=== PATIENT | female | born 1940 | race Caucasian/White ===

== ENCOUNTER → 2024-10-27 | Outpatient (CLI) | payer MEDICARE, BC, SELFPAY ==
[2024-10-27 13:57] LABS: Albumin, Serum 4.6 gm/dL (3.4-4.8); Anion Gap 3 (7-16); BUN/Creatinine Ratio 16 Ratio (12-20); Blood Urea Nitrogen 19 mg/dL (9-23); Calcium 9.4 mg/dL (8.3-10.6); Calcium (Corrected) 9.4 mg/dL (8.5-10.1); Carbon Dioxide 30.9 mMol/L (20.0-31.0); Chloride 99 mMol/L (98-107); Creatinine (Component) 1.2 mg/dL (0.6-1.3); Glucose 128 mg/dL (74-106); Osmolality,Calculated 270 (275-295); Phosphorous 2.9 mg/dL (2.4-5.1); Potassium 4.1 mMol/L (3.4-5.1); Sodium 133 mMol/L (136-145); eGFR 44 See Note
== END | disposition home or self-care (01) ==
LOC: COPL 13:05
PROVIDERS: PCP Family Medicine; Referring Provider Internal Medicine; Visit Provider Internal Medicine
DX: N18.31 Chronic kidney disease, stage 3a (principal); Z85.038 Personal history of other malignant neoplasm of large intestine; N28.1 Cyst of kidney, acquired
CPT/HCPCS: 36415; 80069

== ENCOUNTER → 2024-11-30 | Outpatient (CLI) | payer MEDICARE, BC, SELFPAY ==
--- NOTE | 2024-11-30 13:00 | XR_ITS ---
Examination: CT chest, without intravenous contrast. Sagittal and coronal 2-D reconstructions. Exam date and time: November 30, 2024 1349 hours COMPARISON: September 20, 2024 INDICATIONS: Diagnosis malignant neoplasm colon one year ago, 26 mm pulmonary mass right cardiophrenic angle on CT chest study September 20, 2024 CTDI:vol (mGy) 7.08 DLP: (mGycm) 241 Technique: Multiple 3.0 mm axial sections of the chest to been obtained. Bone and lung density settings are obtained. Sagittal and coronal 2-D reconstructions have been obtained. Low dose protocols were performed. One or more of the following dose reduction techniques were used; automated exposure control, adjustment of the mA and/or KV according to patient size, use of iterative reconstruction technique. Findings: AP dimension ascending thoracic aorta 37 mm Pulmonary artery segments are not No paratracheal tracheobronchial or bronchopulmonary adenopathy Stable 24 mm pulmonary mass at the right cardiophrenic angle Stable tiny nodular densities in the anterior segment right upper lobe No interval pneumonia or edema No pleural disease Stable right lobe liver cyst Stable 5 cm left renal cyst Stable bronchiectasis in the lingular segment IMPRESSION: Stable 24 mm pulmonary mass right cardiophrenic angle Stable likely post infectious nodular densities anterior segment right upper lobe Stable bronchiectasis lingular segment left upper lobe No interval pneumonia
== END | disposition home or self-care (01) ==
LOC: CCTX 12:52
PROVIDERS: Referring Provider Internal Medicine Hematology & Oncology; Visit Provider Internal Medicine Hematology & Oncology
DX: R91.8 Other nonspecific abnormal finding of lung field (principal); J47.9 Bronchiectasis, uncomplicated; C18.9 Malignant neoplasm of colon, unspecified
CPT/HCPCS: 71250

== ENCOUNTER → 2024-12-07 | Outpatient (CLI) | payer MEDICARE, BC, SELFPAY ==
[2024-12-07 14:21] LABS: Basophils # (Auto) 0.1 Thou/mm3 (0.0-0.2); Basophils % (Auto) 1 % (0-2.5); Eosinophils # (Auto) 0.1 Thou/mm3 (0.0-0.5); Eosinophils % (Auto) 1 % (0-10); Hematocrit 40.7 % (36.0-46.0); Hemoglobin 14.1 g/dL (12.0-16.0); Immature Granulocytes % (Auto) 0 % (0-0); Immature Granulocytes Auto 0.02 Thou/mm3 (0.00-0.00); Lymphocytes % (Auto) 27 % (10-50); Mean Corpuscular HGB Conc 34.6 g/dl (31.0-37.0); Mean Corpuscular Hemoglobin 30.7 pg (25.0-35.0); Mean Corpuscular Volume 89 fL (80-100); Monocytes # (Auto) 0.5 Thou/mm3 (0.0-0.8); Monocytes % (Auto) 7 % (0-12); Neutrophils # (Auto) 4.7 Thou/mm3 (1.8-7.7); Neutrophils % (Auto) 64 % (37-80); Nucleated Red Blood Cell % 0 /100 WBC (0); Platelet Count 243 Thou/mm3 (140-440); RDW Standard Deviation 38.7 fL (36.4-46.3); Red Blood Count 4.59 Miln/mm3 (4.00-5.20); White Blood Count 7.3 Thou/mm3 (3.6-11.0)
[2024-12-07 14:37] LABS: Alanine Aminotransferase 17 U/L (10-49); Albumin, Serum 4.4 gm/dL (3.4-4.8); Albumin/Globulin Ratio 1.8 (1.2-2.2); Alkaline Phosphatase 65 U/L (46-116); Anion Gap 6 (7-16); Aspartate Amino Transferase 21 U/L (0-34); BUN/Creatinine Ratio 15 Ratio (12-20); Bilirubin,Total 0.6 mg/dL (0.3-1.2); Blood Urea Nitrogen 15 mg/dL (9-23); Calcium 9.7 mg/dL (8.3-10.6); Calcium (Corrected) 9.7 mg/dL (8.5-10.1); Carbon Dioxide 30.3 mMol/L (20.0-31.0); Chloride 100 mMol/L (98-107); Globulin 2.5 gm/dL (2.3-3.5); Glucose 104 mg/dL (74-106); Osmolality,Calculated 272 (275-295); Potassium 4.4 mMol/L (3.4-5.1); Sodium 136 mMol/L (136-145); Total Protein 6.9 gm/dL (5.7-8.2); eGFR 55 See Note
[2024-12-07 15:06] LABS: Carcinoembryonic Antigen 1.7 ng/mL (0.0-5.0); Folate > 24.00 ng/mL (>5.38); Vitamin B12 376 pg/mL (211-911)
[2024-12-07 15:27] LABS: Ferritin 35 ng/mL (7.3-270.7); Total Iron Binding Capacity 378 mcg/dL (250-425)
[2024-12-07 15:38] LABS: Iron 90 mcg/dL (50-170); Percent Iron Saturation 23 % (20-55); Unsaturated Iron Binding 288 (225-295)
== END | disposition home or self-care (01) ==
LOC: SCTO 13:21
PROVIDERS: PCP Family Medicine; Referring Provider Internal Medicine Hematology & Oncology; Visit Provider Internal Medicine Hematology & Oncology
DX: C18.9 Malignant neoplasm of colon, unspecified (principal)
CPT/HCPCS: 36415; 80053; 82378; 82607; 82728; 82746; 83540; 83550; 85025

== ENCOUNTER 2024-12-13 09:50 | Outpatient (RCR) | payer MEDICARE, BC, SELFPAY | END 2024-12-17 23:59 | disposition home or self-care (01) | LOC: SCTC 09:50 | PROVIDERS: PCP Family Medicine; Referring Provider Family Medicine; Visit Provider Nurse Practitioner Family | DX: Z08 Encounter for follow-up examination after completed treatment for malignant neoplasm (principal); Z85.038 Personal history of other malignant neoplasm of large intestine; R91.8 Other nonspecific abnormal finding of lung field; Z90.49 Acquired absence of other specified parts of digestive tract | CPT/HCPCS: 99212; G0463 ==

== ENCOUNTER → 2024-12-28 | Outpatient (CLI) | payer MEDICARE, BC, SELFPAY ==
[2024-12-28 13:43] LABS: Glucose Estimated Average 100 mg/dL (80-131); Hemoglobin A1C 5.1 % Hgb (4.8-6.0)
[2024-12-28 13:49] LABS: Alanine Aminotransferase 18 U/L (10-49); Albumin, Serum 4.3 gm/dL (3.4-4.8); Albumin/Globulin Ratio 1.9 (1.2-2.2); Alkaline Phosphatase 65 U/L (46-116); Anion Gap 5 (7-16); Aspartate Amino Transferase 27 U/L (0-34); BUN/Creatinine Ratio 14 Ratio (12-20); Bilirubin,Total 0.6 mg/dL (0.3-1.2); Blood Urea Nitrogen 15 mg/dL (9-23); Carbon Dioxide 30.9 mMol/L (20.0-31.0); Cardiac Risk Estimate 2.4 RATIO (3.7-5.6); Chloride 102 mMol/L (98-107); Cholesterol 150 mg/dL (132-200); Creatinine (Component) 1.1 mg/dL (0.6-1.3); Globulin 2.3 gm/dL (2.3-3.5); Glucose 97 mg/dL (74-106); HDL Cholesterol 62 mg/dL (40-60); LDL Cholesterol,Calculated 54 mg/dL (0-130); Osmolality,Calculated 276 (275-295); Potassium 4.6 mMol/L (3.4-5.1); Sodium 138 mMol/L (136-145); Total Protein 6.6 gm/dL (5.7-8.2); Triglycerides 172 mg/dL (30-150); eGFR 49 See Note
== END | disposition home or self-care (01) ==
LOC: COPL 13:05
PROVIDERS: PCP Physician Assistant; Referring Provider Physician Assistant; Visit Provider Physician Assistant
DX: E78.5 Hyperlipidemia, unspecified (principal); R73.01 Impaired fasting glucose
CPT/HCPCS: 36415; 80053; 80061; 83036

== ENCOUNTER → 2025-01-26 | Outpatient (CLI) | payer MEDICARE, BC, SELFPAY ==
[2025-01-26 14:39] LABS: Basophils # (Auto) 0.1 Thou/mm3 (0.0-0.2); Basophils % (Auto) 1 % (0-2.5); Eosinophils # (Auto) 0.1 Thou/mm3 (0.0-0.5); Eosinophils % (Auto) 1 % (0-10); Hematocrit 43.3 % (36.0-46.0); Hemoglobin 14.5 g/dL (12.0-16.0); Immature Granulocytes % (Auto) 0 % (0-0); Immature Granulocytes Auto 0.02 Thou/mm3 (0.00-0.00); Lymphocytes # (Auto) 2.5 Thou/mm3 (1.0-4.8); Lymphocytes % (Auto) 27 % (10-50); Mean Corpuscular HGB Conc 33.5 g/dl (31.0-37.0); Mean Corpuscular Hemoglobin 30.9 pg (25.0-35.0); Mean Corpuscular Volume 92 fL (80-100); Monocytes # (Auto) 0.6 Thou/mm3 (0.0-0.8); Monocytes % (Auto) 7 % (0-12); Neutrophils % (Auto) 65 % (37-80); Nucleated Red Blood Cell % 0 /100 WBC (0); Platelet Count 244 Thou/mm3 (140-440); RDW Standard Deviation 41.8 fL (36.4-46.3); White Blood Count 9.2 Thou/mm3 (3.6-11.0)
[2025-01-26 14:54] LABS: Albumin, Serum 4.4 gm/dL (3.4-4.8); Anion Gap 7 (7-16); BUN/Creatinine Ratio 13 Ratio (12-20); Blood Urea Nitrogen 16 mg/dL (9-23); Calcium 9.5 mg/dL (8.3-10.6); Calcium (Corrected) 9.5 mg/dL (8.5-10.1); Carbon Dioxide 31.5 mMol/L (20.0-31.0); Chloride 101 mMol/L (98-107); Creatinine (Component) 1.2 mg/dL (0.6-1.3); Glucose 107 mg/dL (74-106); Osmolality,Calculated 278 (275-295); Phosphorous 3.3 mg/dL (2.4-5.1); Potassium 4.2 mMol/L (3.4-5.1); Sodium 139 mMol/L (136-145); eGFR 44 See Note
[2025-01-26 14:56] LABS: Vitamin B12 370 pg/mL (211-911); Vitamin D 25 Hydroxy Total 38.6 ng/mL (7.3-40.2)
[2025-01-26 15:14] LABS: Creatinine,Random Urine 15 mg/dL (30-125); Protein Total, Random Urine < 6 mg/dL (1-14)
== END | disposition home or self-care (01) ==
LOC: COPL 13:03
PROVIDERS: PCP Family Medicine; Referring Provider Internal Medicine; Visit Provider Internal Medicine
DX: N18.31 Chronic kidney disease, stage 3a (principal); N28.1 Cyst of kidney, acquired; Z85.038 Personal history of other malignant neoplasm of large intestine
CPT/HCPCS: 36415; 80069; 82306; 82570; 82607; 84156; 85025

== ENCOUNTER → 2025-02-10 | Outpatient (CLI) | payer MEDICARE, BC, SELFPAY ==
--- NOTE | 2025-02-10 13:40 | XR_ITS ---
Examination: Bone densitometry Date and time of exam:February 10, 2025 1418 hours INDICATIONS: Menopause age 49 vitamin D and calcium 20 years, personal history osteopenia Technique: Lumbar spine and hip total bone mineralization values of an calculated. Peak reference and age match control results have been displayed. Findings: Lumbar spine total bone mineralization is0.978 gm/cm2. This is 0.6 standard deviations below peak reference. This is 2.2 standard deviations above age-matched controls. Hip total bone mineralization is 0.893 gm/cm2 This is 0.4 standard deviations below peak reference. This is 1.9 standard deviations above age-matched controls Impression: There is normal mineralization based on lumbar spine measurements. There is osteopenia based on hip measurements Lumbar mineralization is unchanged compared with January 09, 2023 Hip mineralization is decreased 2.6% compared with January 09, 2023
== END | disposition home or self-care (01) ==
PROVIDERS: Referring Provider Physician Assistant; Visit Provider Physician Assistant
DX: M85.89 Other specified disorders of bone density and structure, multiple sites (principal)
CPT/HCPCS: 77080

== ENCOUNTER → 2025-05-05 | Outpatient (CLI) | payer MEDICARE, BC, SELFPAY ==
[2025-05-05 14:30] LABS: Albumin, Serum 4.3 gm/dL (3.4-4.8); Anion Gap 4 (7-16); BUN/Creatinine Ratio 13 Ratio (12-20); Blood Urea Nitrogen 16 mg/dL (9-23); Calcium 9.5 mg/dL (8.3-10.6); Calcium (Corrected) 9.5 mg/dL (8.5-10.1); Carbon Dioxide 31.6 mMol/L (20.0-31.0); Chloride 102 mMol/L (98-107); Creatinine (Component) 1.2 mg/dL (0.6-1.3); Glucose 121 mg/dL (74-106); Osmolality,Calculated 277 (275-295); Phosphorous 2.9 mg/dL (2.4-5.1); Potassium 4.6 mMol/L (3.4-5.1); Sodium 138 mMol/L (136-145); eGFR 44 See Note
== END | disposition home or self-care (01) ==
LOC: COPL 13:20
PROVIDERS: PCP Physician Assistant; Referring Provider Internal Medicine; Visit Provider Internal Medicine
DX: N18.31 Chronic kidney disease, stage 3a (principal); N28.1 Cyst of kidney, acquired; Z85.038 Personal history of other malignant neoplasm of large intestine
CPT/HCPCS: 36415; 80069

== ENCOUNTER → 2025-06-03 | Outpatient (CLI) | payer MEDICARE, BC, SELFPAY ==
[2025-06-03 14:41] LABS: Basophils # (Auto) 0.0 Thou/mm3 (0.0-0.2); Basophils % (Auto) 1 % (0-2.5); Eosinophils # (Auto) 0.1 Thou/mm3 (0.0-0.5); Eosinophils % (Auto) 1 % (0-10); Hematocrit 40.4 % (36.0-46.0); Hemoglobin 13.9 g/dL (12.0-16.0); Immature Granulocytes Auto 0.02 Thou/mm3 (0.00-0.00); Lymphocytes # (Auto) 2.2 Thou/mm3 (1.0-4.8); Lymphocytes % (Auto) 29 % (10-50); Mean Corpuscular HGB Conc 34.4 g/dl (31.0-37.0); Mean Corpuscular Hemoglobin 30.6 pg (25.0-35.0); Mean Corpuscular Volume 89 fL (80-100); Monocytes # (Auto) 0.5 Thou/mm3 (0.0-0.8); Monocytes % (Auto) 7 % (0-12); Neutrophils # (Auto) 4.9 Thou/mm3 (1.8-7.7); Neutrophils % (Auto) 63 % (37-80); Nucleated Red Blood Cell # 0.00 Thou/mm3 (0.00-0.00); Nucleated Red Blood Cell % 0 /100 WBC (0); Platelet Count 217 Thou/mm3 (140-440); RDW Standard Deviation 39.9 fL (36.4-46.3); Red Blood Count 4.54 Miln/mm3 (4.00-5.20); White Blood Count 7.7 Thou/mm3 (3.6-11.0)
[2025-06-03 15:02] LABS: Alanine Aminotransferase 16 U/L (10-49); Albumin, Serum 4.2 gm/dL (3.4-4.8); Albumin/Globulin Ratio 1.6 (1.2-2.2); Alkaline Phosphatase 62 U/L (46-116); Anion Gap 11 (7-16); Aspartate Amino Transferase 25 U/L (0-34); BUN/Creatinine Ratio 15 Ratio (12-20); Bilirubin,Total 0.6 mg/dL (0.3-1.2); Blood Urea Nitrogen 16 mg/dL (9-23); Calcium 9.1 mg/dL (8.3-10.6); Calcium (Corrected) 9.1 mg/dL (8.5-10.1); Carbon Dioxide 27.2 mMol/L (20.0-31.0); Chloride 101 mMol/L (98-107); Creatinine (Component) 1.1 mg/dL (0.6-1.3); Globulin 2.6 gm/dL (2.3-3.5); Glucose 164 mg/dL (74-106); Osmolality,Calculated 282 (275-295); Potassium 3.9 mMol/L (3.4-5.1); Sodium 139 mMol/L (136-145); Total Protein 6.8 gm/dL (5.7-8.2); eGFR 49 See Note
[2025-06-03 15:06] LABS: Carcinoembryonic Antigen 1.4 ng/mL (0.0-5.0)
== END | disposition home or self-care (01) ==
LOC: COPL 13:47
PROVIDERS: PCP Family Medicine; Referring Provider Nurse Practitioner Family; Visit Provider Physician Assistant
DX: C18.9 Malignant neoplasm of colon, unspecified (principal)
CPT/HCPCS: 36415; 80053; 82378; 85025

== ENCOUNTER 2025-06-07 10:45 | Outpatient (RCR) | payer MEDICARE, BC, SELFPAY ==
--- NOTE | 2025-06-13 04:27 | CTCFLWUP_ITS ---
Patient: LYDIA GRUBBS I. : 1940 Page 6 of 9 FOLLOW UP NOTE DATE OF SERVICE: 06/07/2025 NAME: LYDIA GRUBBS I. ACCOUNT: [id number] : 1940 AGE: 85 INTERVAL HISTORY: Lydia, an 85yo female with stage 2 colon cancer (2023), presented for oncology follow-up. Her history includes stage 3 CKD, hypercholesterolemia, and bronchiectasis. She underwent partial colectomy without chemotherapy and reports no new cancer-related symptoms. Recent labs showed improved kidney function (50, up from 46) and normal hemoglobin after discontinuing ferrous sulfate in September 2024. A stable 2cm pulmonary nodule was noted on CT. Management includes initiating circulating tumor DNA testing every 3 months, continuing CT surveillance, and follow-up in 6 months. ONCOLOGY HISTORY:?[facility] Hx? 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 S/p right hemicolectomy on 02/24/2024. Garcia syndrome panel negative (03/22/2024) Small pulmonary nodules. History of bronchiectasis diagnosed in 2007. Currently being followed by Dr. Mcneal, professor [facility] [employer] [place]. 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 S/p right hemicolectomy on 02/24/2024. Garcia syndrome panel negative (03/22/2024) [facility] inherited trait cancer test did not show any genetic abnormalities. ?[facility] Dx? DATE OF DIAGNOSIS: 02/23/2024 STAGE/TNM: Stage IIA (pT3, PN 0, centimeters 0) TREATMENT HISTORY: Care?Plan Start?Date Cycle Day Intent HISTORY OF PRESENT ILLNESS: Lydia Grubbs is a 85-year-old ENG speaking female with history of bronchiectasis was recently found to have microcytic anemia which prompted her to have colonoscopy. 10/27/2023: Hemoglobin 9.2, MCV 74, WBC 8.1, ANC 5.6, platelets 241,000. 02/23/2024: Colonoscopy 02/26/2024: CT scan of the chest with IV contrast? OTHER MEDICAL HISTORY/CONDITIONS: COPD HTN Hyperlipidemia Hx TIA Chronic kidney disease - Dr. Bobby Bronchietasis - Dr. 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 [employer] HISTORY: Menarche?-?Age:?14 Menopause:?1989 :?1 Live?Births:?1 Age?1st?:?18 MEDICATIONS: 1. aspirin - 81 mg 1 tab Daily 2. azithromycin - 500 mg 1 tab As directed 3. busPIRone - 7.5 mg 0.5 tab Twice a Day 4. Calcium 500 - 500 mg 1 tab Twice a Day 5. Fish OiL - 1,200 (144-216) mg 1 Capsule Daily 6. lovastatin - 20 mg 1 tab Daily 7. Vitamin C - 500 mg 1 tab Twice a Day 8. Women's Daily Multivitamin - 18-0.4 mg 1 tab Daily?Palabra Meds? Medications Last Reconciled by Rochelle Luna MA on 06/07/2025 ALLERGIES: No Known Drug Allergies REVIEW OF SYSTEMS: A complete 14-point review of systems was performed and is negative except as noted in interval history. PHYSICAL EXAMINATION:?[facility] PE? VITAL SIGNS: Temperature?98, B/P?151/93, Oxygen?Saturation?94% PAIN: 0 - No pain ECOG Performance Status: 0 - Asymptomatic and fully active GENERAL APPEARANCE: Appears well, in no apparent distress, appropriately interactive. HEENT: Normocephalic, no temporal wasting, normal conjunctiva, lips without lesions, neck normal range of motion. CARDIOVASCULAR: Normal heart sounds PULMONARY: Normal respiratory effort, no respiratory distress or use of accessory muscles, speaking in full sentences, no tachypnea. EXTREMITIES: No cyanosis. SKIN: Normal skin appearance. NEUROLOGIC: Alert and oriented x4. PSHYCHIATRIC: Appropriate affect, mood normal, behavior normal, intact thought and speech. LABORATORY DATA: I have personally reviewed and interpreted each of the patient?s relevant lab tests, abnormal findings are below: Date 05/05/25 06/03/25 ??WHITE?BLOOD?COUNT?(Thou/mm3) ? 7.7 ??RED?BLOOD?COUNT?(Miln/mm3) ? 4.54 ??HEMOGLOBIN?(gm/dl) ? 13.9 ??HEMATOCRIT?(%) ? 40.4 ??PLATELET?COUNT?(Thou/mm3) ? 217 ??NEUTROPHILS?%,?AUTO?(%) ? 63 ??LYMPH?%,?AUTO?(%) ? 29 ??NEUTROPHILS,?AUTO?(Thou/mm3) ? 4.9 ??GLUCOSE,RANDOM?(mg/dL) 121?H 164?H ??BLOOD?UREA?NITROGEN?(mg/dL) 16 16 ??CREATININE?(mg/dL) 1.20 1.10 ??SODIUM?(mmol/L) 138 139 ??POTASSIUM?(mmol/L) 4.6 3.9 ??CHLORIDE?(mmol/L) 102 101 ??CrCl?(CandG)?(ml/min) 32.40 34.70 ??AST/SGOT?(Unit/L) ? 25 ??ALT/SGPT?(Unit/L) ? 16 ??ALKALINE?PHOSPHATASE?(Unit/L) ? 62 ??BILIRUBIN,?TOTAL?(mg/dL) ? 0.6 ??PROTEIN?TOTAL?(gm/dl) ? 6.8 ??ALBUMIN,?SERUM?(gm/dl) 4.3 4.2 ??GLOBULIN?(gm/dl) ? 2.6 ??ALBUMIN/GLOBULIN?RATIO ? 1.6 ??CALCIUM,?SERUM?(mg/dL) 9.5 9.1 ??CALCIUM?SERUM?(CORRECTED)?(mg/dL) 9.5 9.1 ??CEA?(O*)?(ng/ml) ? 1.4 ASSESSMENT/PLAN:?Deborah Han Assessment/Plan? 1. 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 S/p right hemicolectomy on 02/24/2024. Garcia syndrome panel negative (03/22/2024) [facility] inherited trait cancer test did not show any genetic abnormalities. Small pulmonary nodules. History of bronchiectasis diagnosed in 2007. Currently being followed by Dr. Mcneal, professor [employer] [place]. Taking antibiotics that are prescribed by Dr. Mcneal. Assessment: Patient underwent surgery in 2023 for stage 2 colon cancer, with 6 inches of colon removed. The surgeon, Dr. Grant, reported complete resection of the cancer. Post-operative management consisted of observation only, without adjuvant chemotherapy. A recent CT scan showed a stable 2-centimeter nodule, which is most likely scar tissue, possibly related to bronchiectasis or environmental factors associated with living in the [place]. The patient has been doing well since the surgery with no reported symptoms suggestive of recurrence. Plan: - Order circulating tumor DNA blood test for cancer surveillance - Initial test to be performed in clinic - Subsequent tests to be conducted at patient's home every 3 months - Continue surveillance with CT scans as previously scheduled - Follow-up appointment in 6 months - Continue current diet (primarily vegetarian with occasional fish) Chronic Kidney Disease, Stage 3 Assessment: Patient has a history of chronic kidney disease, stage 3. Recent laboratory results show improvement in kidney function with creatinine clearance of 50 mL/min, up from a previous value of 46 mL/min. 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 Plan: - Continue current renal diet (low salt, primarily vegetarian with occasional fish) - Monitor renal function with comprehensive metabolic panel at next visit Anemia, Resolved Assessment: Patient has a history of anemia, previously treated with ferrous sulfate. Treatment was discontinued in September [address] Michele. Recent laboratory results show normal hemoglobin levels, indicating resolution of anemia. Plan: - Discontinue ferrous sulfate prescription at pharmacy - Monitor hemoglobin levels with complete blood count at next visit - Check vitamin and iron levels at next visit to ensure no deficiencies Elevated Blood Glucose Assessment: Recent random blood glucose was noted to be slightly elevated. No prior history of diabetes mellitus is mentioned. Plan: - Monitor blood glucose levels at future visits - Consider fasting blood glucose or HbA1c at next visit for further evaluation CBC CMP CEA iron panel ferritin B12 folate ORDERS: Order # Description [id number] Comprehensive Metabolic Panel - 12 + CBC with Auto Diff + CEA [id number] Iron Panel + Ferritin + Folic Acid; Serum + Lactate Dehydrogenase (LDH) + Assay Of Haptoglobin Quant RETURN TO CLINIC: I reviewed the diagnosis, prognosis, and recommended treatment/procedure options with the patient (and/or their legal data entry representative), including the potential benefits, risks, side effects and alternative therapies. We also discussed the option of no treatment and the possibility of clinical trial participation, if applicable. All questions were addressed, and they demonstrated understanding. They provided informed consent to proceed with the proposed plan of care. BILLING AND COMPLIANCE: I reviewed external records from providers outside my specialty as summarized above. I spent a total of 50 minutes on this patient?s care on the day of their visit excluding time spent related to any billed procedures. This time includes time spent with the patient as well as time spent documenting in the medical record, reviewing patients records and tests, obtaining history, placing orders, communicating with other healthcare professionals, counseling the patient, family or caregiver, and/or care coordination for the diagnoses above. Electronically Signed by: Francis Han MD T: 4:25 AM CC: PCP: Thien Ambriz Referring: Thien Ambriz This document was completed utilizing speech recognition software. Grammatical errors, random word insertions, pronoun errors, and incomplete sentences are an occasional consequence of this system due to software limitations, ambient noise, and hardware issues. Any formal questions or concerns about the content, text or information contained within the body of this dictation should be directly addressed to the provider for clarification.
== END 2025-06-16 23:59 | disposition home or self-care (01) ==
LOC: SCTC 10:45
PROVIDERS: PCP Family Medicine; Referring Provider Family Medicine; Visit Provider Internal Medicine Hematology & Oncology
DX: C18.2 Malignant neoplasm of ascending colon (principal); Z90.49 Acquired absence of other specified parts of digestive tract; R91.8 Other nonspecific abnormal finding of lung field; N18.30 Chronic kidney disease, stage 3 unspecified; R73.9 Hyperglycemia, unspecified
CPT/HCPCS: 99212; G0463

== ENCOUNTER → 2025-06-27 | Outpatient (CLI) | payer MEDICARE, BC, SELFPAY ==
[2025-06-27 08:37] LABS: Basophils # (Auto) 0.1 Thou/mm3 (0.0-0.2); Basophils % (Auto) 1 % (0-2.5); Eosinophils # (Auto) 0.1 Thou/mm3 (0.0-0.5); Eosinophils % (Auto) 2 % (0-10); Hematocrit 42.7 % (36.0-46.0); Hemoglobin 14.5 g/dL (12.0-16.0); Immature Granulocytes Auto 0.02 Thou/mm3 (0.00-0.00); Lymphocytes # (Auto) 2.2 Thou/mm3 (1.0-4.8); Lymphocytes % (Auto) 25 % (10-50); Mean Corpuscular HGB Conc 34.0 g/dl (31.0-37.0); Mean Corpuscular Hemoglobin 31.0 pg (25.0-35.0); Mean Corpuscular Volume 91 fL (80-100); Monocytes # (Auto) 0.8 Thou/mm3 (0.0-0.8); Monocytes % (Auto) 10 % (0-12); Neutrophils # (Auto) 5.5 Thou/mm3 (1.8-7.7); Neutrophils % (Auto) 63 % (37-80); Nucleated Red Blood Cell # 0.00 Thou/mm3 (0.00-0.00); Nucleated Red Blood Cell % 0 /100 WBC (0); Platelet Count 302 Thou/mm3 (140-440); RDW Standard Deviation 39.5 fL (36.4-46.3); Red Blood Count 4.68 Miln/mm3 (4.00-5.20); White Blood Count 8.7 Thou/mm3 (3.6-11.0)
[2025-06-27 08:46] LABS: Alanine Aminotransferase 11 U/L (10-49); Albumin, Serum 4.5 gm/dL (3.4-4.8); Albumin/Globulin Ratio 1.7 (1.2-2.2); Alkaline Phosphatase 79 U/L (46-116); Anion Gap 9 (7-16); Aspartate Amino Transferase 18 U/L (0-34); BUN/Creatinine Ratio 13 Ratio (12-20); Bilirubin,Total 0.7 mg/dL (0.3-1.2); Blood Urea Nitrogen 14 mg/dL (9-23); Calcium 9.4 mg/dL (8.3-10.6); Calcium (Corrected) 9.4 mg/dL (8.5-10.1); Carbon Dioxide 29.4 mMol/L (20.0-31.0); Cardiac Risk Estimate 2.6 RATIO (3.7-5.6); Chloride 103 mMol/L (98-107); Cholesterol 141 mg/dL (132-200); Creatinine (Component) 1.1 mg/dL (0.6-1.3); Globulin 2.6 gm/dL (2.3-3.5); Glucose 112 mg/dL (74-106); HDL Cholesterol 54 mg/dL (40-60); LDL Cholesterol,Calculated 66 mg/dL (0-130); Osmolality,Calculated 282 (275-295); Potassium 4.5 mMol/L (3.4-5.1); Sodium 141 mMol/L (136-145); Thyroid Stimulating Hormone 1.82 uIU/mL (0.55-4.78); Total Protein 7.1 gm/dL (5.7-8.2); Triglycerides 105 mg/dL (30-150); eGFR 49 See Note
[2025-06-27 08:55] LABS: Vitamin B12 457 pg/mL (211-911); Vitamin D 25 Hydroxy Total 46.0 ng/mL (7.3-40.2)
[2025-06-27 09:01] LABS: Glucose Estimated Average 111 mg/dL (80-131); Hemoglobin A1C 5.5 % Hgb (4.8-6.0)
[2025-06-27 09:24] LABS: Collection Type, Urine Clean Catch
[2025-06-27 10:17] LABS: Amorphous Crystals,Urine Present (Absent); Bilirubin,Urine Negative (Negative); Blood,Urine Negative (Negative); Clarity,Urine Turbid (Clear/Hazy); Color,Urine Yellow (Lt Yel-Yel); Culture Indicated,Urine Not Indicated; Glucose, Urine Negative (Negative); Ketones,Urine Negative (Negative); Leukocyte Esterase,Urine Negative (Negative); Nitrite,Urine Negative (Negative); PH,Urine 8.0 (5.0-7.0); Protein,Urine Trace (Neg - Trace); RBC,Urine 9 /hpf (0-3); Specific Gravity,Urine 1.019 (1.001-1.035); Squamous Epithelial Cell,Urine < 1 /hpf (0-5); Urobilinogen,Urine Negative mg/dL (0.0-1.0); WBC,Urine 2 /hpf (0-5)
== END | disposition home or self-care (01) ==
LOC: COPL 07:49
PROVIDERS: PCP Family Medicine; Referring Provider Physician Assistant; Visit Provider Physician Assistant
DX: E55.9 Vitamin D deficiency, unspecified (principal); R73.01 Impaired fasting glucose; N18.30 Chronic kidney disease, stage 3 unspecified; E78.5 Hyperlipidemia, unspecified
CPT/HCPCS: 36415; 80053; 80061; 81001; 82306; 82607; 83036; 84443; 85025

== ENCOUNTER → 2025-06-28 | Outpatient (CLI) | payer MEDICARE, BC, SELFPAY ==
[2025-06-30 06:29] LABS: Fecal Globin Result NOT DETECTED (NOT DETECTED)
== END | disposition home or self-care (01) ==
LOC: SLDO 10:28
PROVIDERS: Referring Provider Physician Assistant; Visit Provider Physician Assistant
DX: R73.01 Impaired fasting glucose (principal); E55.9 Vitamin D deficiency, unspecified; E78.5 Hyperlipidemia, unspecified; N18.30 Chronic kidney disease, stage 3 unspecified
CPT/HCPCS: 82274; G0328

== ENCOUNTER → 2025-08-04 | Outpatient (CLI) | payer MEDICARE, BC, SELFPAY ==
[2025-08-04 14:23] LABS: Basophils # (Auto) 0.1 Thou/mm3 (0.0-0.2); Basophils % (Auto) 1 % (0-2.5); Eosinophils # (Auto) 0.1 Thou/mm3 (0.0-0.5); Eosinophils % (Auto) 1 % (0-10); Hematocrit 41.1 % (36.0-46.0); Hemoglobin 13.7 g/dL (12.0-16.0); Immature Granulocytes Auto 0.02 Thou/mm3 (0.00-0.00); Lymphocytes # (Auto) 2.3 Thou/mm3 (1.0-4.8); Lymphocytes % (Auto) 29 % (10-50); Mean Corpuscular HGB Conc 33.3 g/dl (31.0-37.0); Mean Corpuscular Hemoglobin 30.3 pg (25.0-35.0); Mean Corpuscular Volume 91 fL (80-100); Monocytes # (Auto) 0.6 Thou/mm3 (0.0-0.8); Monocytes % (Auto) 8 % (0-12); Neutrophils # (Auto) 4.8 Thou/mm3 (1.8-7.7); Neutrophils % (Auto) 61 % (37-80); Nucleated Red Blood Cell # 0.00 Thou/mm3 (0.00-0.00); Nucleated Red Blood Cell % 0 /100 WBC (0); Platelet Count 233 Thou/mm3 (140-440); RDW Standard Deviation 40.5 fL (36.4-46.3); Red Blood Count 4.52 Miln/mm3 (4.00-5.20); White Blood Count 7.9 Thou/mm3 (3.6-11.0)
[2025-08-04 14:47] LABS: Albumin, Serum 4.2 gm/dL (3.4-4.8); Anion Gap 7 (7-16); BUN/Creatinine Ratio 12 Ratio (12-20); Blood Urea Nitrogen 12 mg/dL (9-23); Calcium 9.9 mg/dL (8.3-10.6); Calcium (Corrected) 9.9 mg/dL (8.5-10.1); Carbon Dioxide 30.9 mMol/L (20.0-31.0); Chloride 102 mMol/L (98-107); Creatinine (Component) 1.0 mg/dL (0.6-1.3); Glucose 75 mg/dL (74-106); Osmolality,Calculated 278 (275-295); Phosphorous 3.4 mg/dL (2.4-5.1); Potassium 4.6 mMol/L (3.4-5.1); Sodium 140 mMol/L (136-145); eGFR 55 See Note
[2025-08-04 14:52] LABS: Vitamin D 25 Hydroxy Total 58.8 ng/mL (7.3-40.2)
== END | disposition home or self-care (01) ==
LOC: COPL 13:51
PROVIDERS: PCP Family Medicine; Referring Provider Internal Medicine; Visit Provider Internal Medicine
DX: N18.31 Chronic kidney disease, stage 3a (principal); Z85.038 Personal history of other malignant neoplasm of large intestine; N28.1 Cyst of kidney, acquired
CPT/HCPCS: 36415; 80069; 82306; 85025

== ENCOUNTER → 2025-08-30 | Outpatient (CLI) | payer MEDICARE, BC, SELFPAY ==
[2025-08-30 13:24] LABS: Collection Type, Urine Clean Catch; Squamous Epithelial Cell,Urine 0 /hpf (0-5)
[2025-08-30 13:56] LABS: Basophils # (Auto) 0.1 Thou/mm3 (0.0-0.2); Basophils % (Auto) 1 % (0-2.5); Eosinophils # (Auto) 0.1 Thou/mm3 (0.0-0.5); Eosinophils % (Auto) 1 % (0-10); Hematocrit 44.5 % (36.0-46.0); Hemoglobin 14.9 g/dL (12.0-16.0); Immature Granulocytes Auto 0.04 Thou/mm3 (0.00-0.00); Lymphocytes # (Auto) 2.1 Thou/mm3 (1.0-4.8); Lymphocytes % (Auto) 23 % (10-50); Mean Corpuscular HGB Conc 33.5 g/dl (31.0-37.0); Mean Corpuscular Hemoglobin 30.8 pg (25.0-35.0); Mean Corpuscular Volume 92 fL (80-100); Monocytes # (Auto) 0.4 Thou/mm3 (0.0-0.8); Monocytes % (Auto) 5 % (0-12); Neutrophils # (Auto) 6.5 Thou/mm3 (1.8-7.7); Neutrophils % (Auto) 71 % (37-80); Nucleated Red Blood Cell # 0.00 Thou/mm3 (0.00-0.00); Nucleated Red Blood Cell % 0 /100 WBC (0); Platelet Count 243 Thou/mm3 (140-440); RDW Standard Deviation 42.2 fL (36.4-46.3); Red Blood Count 4.84 Miln/mm3 (4.00-5.20); White Blood Count 9.2 Thou/mm3 (3.6-11.0)
[2025-08-30 13:59] LABS: Bilirubin,Urine Negative (Negative); Blood,Urine 1+ (Negative); Clarity,Urine Clear (Clear/Hazy); Color,Urine Lt-Yellow (Lt Yel-Yel); Culture Indicated,Urine Not Indicated; Glucose, Urine Negative (Negative); Ketones,Urine Negative (Negative); Leukocyte Esterase,Urine Negative (Negative); Nitrite,Urine Negative (Negative); PH,Urine 6.0 (5.0-7.0); Protein,Urine Negative (Neg - Trace); RBC,Urine < 1 /hpf (0-3); Specific Gravity,Urine 1.009 (1.001-1.035); Urobilinogen,Urine Negative mg/dL (0.0-1.0); WBC,Urine < 1 /hpf (0-5)
[2025-08-30 14:27] LABS: Alanine Aminotransferase 19 U/L (10-49); Albumin, Serum 4.5 gm/dL (3.4-4.8); Albumin/Globulin Ratio 1.8 (1.2-2.2); Alkaline Phosphatase 66 U/L (46-116); Amylase 174 U/L (30-118); Anion Gap 10 (7-16); Aspartate Amino Transferase 27 U/L (0-34); BUN/Creatinine Ratio 13 Ratio (12-20); Bilirubin,Total 0.5 mg/dL (0.3-1.2); Blood Urea Nitrogen 14 mg/dL (9-23); Calcium 9.9 mg/dL (8.3-10.6); Calcium (Corrected) 9.9 mg/dL (8.5-10.1); Carbon Dioxide 29.7 mMol/L (20.0-31.0); Chloride 102 mMol/L (98-107); Creatinine (Component) 1.1 mg/dL (0.6-1.3); Globulin 2.5 gm/dL (2.3-3.5); Glucose 137 mg/dL (74-106); Lipase 80 U/L (12-53); Osmolality,Calculated 285 (275-295); Potassium 4.7 mMol/L (3.4-5.1); Sodium 142 mMol/L (136-145); Total Protein 7.0 gm/dL (5.7-8.2); eGFR 49 See Note
== END | disposition home or self-care (01) ==
LOC: COPL 12:35
PROVIDERS: PCP Physician Assistant; Referring Provider Physician Assistant; Visit Provider Physician Assistant
DX: R10.9 Unspecified abdominal pain (principal)
CPT/HCPCS: 36415; 80053; 81001; 82150; 83690; 85025

== ENCOUNTER 2025-08-31 17:26 | Emergency (ER) | payer MEDICARE, BC, SELFPAY ==
[2025-08-31 17:41] VITALS: BP 184/114; BP 186/106; PULSE 81; RESP 20; TEMP 36.9; O2SAT 95
--- NOTE | 2025-08-31 17:51 | EKG_ITS ---
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
--- NOTE | 2025-08-31 17:51 | XR_ITS ---
EXAMINATION: CT abdomen pelvis with contrast 3D sagittal coronal reconstructions 3D reconstructions Date and time: August 31, 2025, 2108 hours, comparison February 23, 2024 INDICATIONS: Left upper abdominal pain today, history right lateral lobe liver lesion 4 mm left lateral para-aortic lymph node Masslike area in the right colon near the cecum 20 x [address] study February 23, 2020 TECHNIQUE AND FINDINGS: Multiple 3.0 mm axial images abdomen/pelvis post intravenous administration 60 cc gadolinium 2D sagittal coronal reconstructions 3D reconstructions CTDI 5.9 DLP: 315 FINDINGS: Minor atelectasis in the lingular segment of right middle lobe No visualized liver or splenic lesion 13 mm right lobe liver cyst 4 mm right lobe liver cyst Contracted gallbladder No pancreatic mass 13 mm right adrenal mass 5.6 cm left renal cyst Soft tissue mass right paracaval, 4.1 x 3.6 cm Left common iliac lymph nodes 6 mm, 7 mm No pericecal inflammatory change No diverticulitis Absent uterus Contracted urinary bladder Prominent osteopenia Advanced degenerative disc disease L5-S1 IMPRESSION: 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
--- NOTE | 2025-08-31 17:52 | PD.EDRME ---
Rapid Medical Screening Exam RME Arrival date/time: 08/31/25 17:26 85-year-old female reports with complaints of abdominal pain and abnormal blood labs at PCPs office Chief Complaint: Abdominal Pain Vital signs: Vital Signs Temperature 98.5 F 08/31/25 17:41 Pulse Rate 81 08/31/25 17:41 Respiratory Rate 20 08/31/25 17:41 Blood Pressure 184/114 H 08/31/25 17:41 Pulse Oximetry (%) 95 08/31/25 17:41 Oxygen Delivery Method Room Air 08/31/25 17:41
[2025-08-31 18:18] LABS: Basophils % (Auto) 1 % (0-2.5); Eosinophils # (Auto) 0.1 Thou/mm3 (0.0-0.5); Eosinophils % (Auto) 1 % (0-10); Mean Corpuscular Volume 90 fL (80-100); Nucleated Red Blood Cell # 0.00 Thou/mm3 (0.00-0.00); Nucleated Red Blood Cell % 0 /100 WBC (0)
[2025-08-31 18:34] LABS: Alanine Aminotransferase 25 U/L (10-49); Albumin, Serum 5.4 gm/dL (3.4-4.8); Albumin/Globulin Ratio 1.9 (1.2-2.2); Alkaline Phosphatase 74 U/L (46-116); Anion Gap 12 (7-16); Aspartate Amino Transferase 34 U/L (0-34); BUN/Creatinine Ratio 14 Ratio (12-20); Bilirubin,Total 0.6 mg/dL (0.3-1.2); Blood Urea Nitrogen 14 mg/dL (9-23); Calcium 9.8 mg/dL (8.3-10.6); Calcium (Corrected) 9.8 mg/dL (8.5-10.1); Carbon Dioxide 25.9 mMol/L (20.0-31.0); Chloride 101 mMol/L (98-107); Creatinine (Component) 1.0 mg/dL (0.6-1.3); Globulin 2.9 gm/dL (2.3-3.5); Glucose 86 mg/dL (74-106); Lipase 101 U/L (12-53); Osmolality,Calculated 277 (275-295); Potassium 4.1 mMol/L (3.4-5.1); Sodium 139 mMol/L (136-145); Total Protein 8.3 gm/dL (5.7-8.2); eGFR 55 See Note
[2025-08-31 18:38] LABS: Collection Type, Urine Clean Catch; Squamous Epithelial Cell,Urine 0 /hpf (0-5); WBC,Urine 0 /hpf (0-5)
[2025-08-31 18:51] LABS: Bilirubin,Urine Negative (Negative); Blood,Urine 1+ (Negative); Clarity,Urine Clear (Clear/Hazy); Color,Urine Colorless (Lt Yel-Yel); Culture Indicated,Urine Not Indicated; Glucose, Urine Negative (Negative); Ketones,Urine Negative (Negative); Leukocyte Esterase,Urine Negative (Negative); Nitrite,Urine Negative (Negative); PH,Urine 6.5 (5.0-7.0); Protein,Urine Negative (Neg - Trace); RBC,Urine < 1 /hpf (0-3); Specific Gravity,Urine 1.004 (1.001-1.035); Urobilinogen,Urine Negative mg/dL (0.0-1.0)
[2025-08-31 19:21] LABS: Basophils # (Auto) 0.1 Thou/mm3 (0.0-0.2); Hematocrit 43.4 % (36.0-46.0); Hemoglobin 14.6 g/dL (12.0-16.0); Immature Granulocytes Auto 0.03 Thou/mm3 (0.00-0.00); Lymphocytes # (Auto) 2.2 Thou/mm3 (1.0-4.8); Lymphocytes % (Auto) 24 % (10-50); Mean Corpuscular HGB Conc 33.6 g/dl (31.0-37.0); Mean Corpuscular Hemoglobin 30.4 pg (25.0-35.0); Monocytes # (Auto) 0.6 Thou/mm3 (0.0-0.8); Monocytes % (Auto) 7 % (0-12); Neutrophils # (Auto) 6.1 Thou/mm3 (1.8-7.7); Neutrophils % (Auto) 67 % (37-80); Platelet Count 240 Thou/mm3 (140-440); RDW Standard Deviation 41.1 fL (36.4-46.3); Red Blood Count 4.81 Miln/mm3 (4.00-5.20); White Blood Count 9.0 Thou/mm3 (3.6-11.0)
--- NOTE | 2025-08-31 23:06 | PD.EDABDPN ---
ED Abdominal Pain RME/HPI General Chief Complaint: Abdominal Pain Stated complaint: R/O PANCREATITIS Arrival date/time: 08/31/25 17:26 RME / HPI RME / HPI narrative: 08/31/25 17:26 85-year-old female reports with complaints of abdominal pain and abnormal blood labs at PCPs office Dr. Prajapati?s Main ED Evaluation: 85yo female with a history of colon CA s/p resection presents to the ED after being sent over by her PCP's office due to having abnormal labs. Patient started having epigastric pain yesterday so she had outpatient labs done and was sent over today due to her Amylase and Lipase being elevated. Patient denies any nausea, vomiting, fever, chills, or any other associated symptoms. NKA. Related Data Home Medications ?Medication ?Instructions ?Recorded ?Confirmed lovastatin 20 mg tablet 1 tab PO ACHS 04/04/22 02/21/24 pqnycezahzun-Kk-kgum-minerals 18 1 tab PO QDAY 04/04/22 02/21/24 mg-0.4 mg tablet omega 7-pqb-nuu-fish oil 1,200 mg 1 cap PO QDAY 04/04/22 02/21/24 (144 mg-216 mg) capsule (Fish Oil) buspirone 7.5 mg tablet 7.5 mg PO BID 02/21/24 02/21/24 calcium 600 mg (as 1 tab PO QDAY 02/21/24 02/21/24 carbonate)-vitamin D3 10 mcg (400 unit) tablet Previous Rx's ?Medication ?Instructions ?Recorded ascorbic acid (vitamin C) 250 mg 500 mg (2 x 250 mg) PO BID #60 tabs 02/27/24 tablet (Vitamin C) Allergies Allergy/AdvReac Type Severity Reaction Status Date / Time No Known Allergies Allergy Verified 08/31/25 17:30 Review of Systems Review of Systems Systems Reviewed: All systems reviewed, normal except as documented ED Exam Narrative Physical exam: Patient generally patient is alert appearing younger than stated age, heart regular rate and rhythm, lungs clear to auscultation equal bilaterally, abdomen soft bowel sounds present nondistended epigastric abdominal tenderness without rebound, skin is warm pale and dry, neurologic exam no ataxia with [place] Coma Scale of 15 Course Quality Measures none Orders Category Date Time Status CT Screening NOW Care 08/31/25 17:51 Active EKG (ED ONLY) *Do not use* NOW Care 08/31/25 17:[address] abdomen pelvis w con Stat Exams 08/31/25 17:51 Completed EKG (ED Only) Stat Exams 08/31/25 17:51 Draft CBC Stat Lab 08/31/25 18:55 Completed CMP [Comprehensive Metabolic Panel] Stat Lab 08/31/25 18:00 Completed Lipase Stat Lab 08/31/25 18:00 Completed UA, C/S IF [Urinalysis, C/S if Indicated] Stat Lab 08/31/25 18:16 Completed Vital Signs Vital signs: Vital Signs Temperature 98.5 F 08/31/25 17:41 Pulse Rate 81 08/31/25 17:41 Respiratory Rate 20 08/31/25 17:41 Blood Pressure 184/114 H 08/31/25 17:41 Pulse Oximetry (%) 95 08/31/25 17:41 Oxygen Delivery Method Room Air 08/31/25 17:41 Abdominal Pain MDM MDM Narrative MDM Narrative:: Scribe Attestation: 08/31/25 - Mini Castro am scribing for and in the presence of Dr. Prajapati. I interpreted all labs. Patient had a mildly elevated amylase and lipase. CT scan done of the abdomen pelvis with IV contrast showed no pancreatic mass but the patient does have a right adrenal mass and a paracaval mass as well. I discussed this case with the patient's GI physician, Dr. Carrillo who will follow-up the patient in his office either late this week or early next week. Patient feels comfortable being discharged home and wants to go home. Patient does have a history of colon cancer and status post partial colectomy. Patient data External records reviewed:: [facility] previous records (Per chart review, patient was admitted here on 02/21/24 for anemia.) Clinical information provided by:: patient Social determinants that could affect healthcare access:: none Patient has the following chronic illnesses:: bronchiectasis, COPD, colon CA (2023), CKD, TIA, chronic constipation, microcytic anemia How is presenting disease/condition affected by chronic disease/condition?: caused by Evaluation data The following diagnostics were reviewed and interpreted by me:: lab results, radiology exam(s) and EKG tracing(s) Lab and/or radiology exams considered but not ordered:: none Interpretation Summary: [facility] Report Signed Patient: AARON TAN Record#: [id number] Birthdate: 1940 Age/Sex: 85 / F Location: [facility] Attending Dr: Ordering Physician: Phillip Felder PA-C Date of Service: 08/31/25 Procedure(s): CT abdomen pelvis w con Accession Number(s): [id number] cc: Maximino Allen MD; José Byrd MD; Phillip Felder PA-C~ EXAMINATION: CT abdomen pelvis with contrast 3D sagittal coronal reconstructions 3D reconstructions Date and time: August 31, 2025, 2108 hours, comparison February 23, 2024 INDICATIONS: Left upper abdominal pain today, history right lateral lobe liver lesion 4 mm left lateral para-aortic lymph node Masslike area in the right colon near the cecum 20 x [address] study February 23, 2020 TECHNIQUE AND FINDINGS: Multiple 3.0 mm axial images abdomen/pelvis post intravenous administration 60 cc gadolinium 2D sagittal coronal reconstructions 3D reconstructions CTDI 5.9 DLP: 315 FINDINGS: Minor atelectasis in the lingular segment of right middle lobe No visualized liver or splenic lesion 13 mm right lobe liver cyst 4 mm right lobe liver cyst Contracted gallbladder No pancreatic mass 13 mm right adrenal mass 5.6 cm left renal cyst Soft tissue mass right paracaval, 4.1 x 3.6 cm Left common iliac lymph nodes 6 mm, 7 mm No pericecal inflammatory change No diverticulitis Absent uterus Contracted urinary bladder Prominent osteopenia Advanced degenerative disc disease L5-S1 IMPRESSION: 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 (list below): Yes Diagnosis Differential diagnosis abdominal pain: other (See MDM) Most likely diagnosis given after review of the tests above:: see clinical impression below Admission Indicated Admission indicated?: not indicated Admission Request Was there a request for admission?: No Disposition Plan Disposition Plan: Discharge Discharge Attestation Discharge Attestation: The patient and all family members were given an opportunity to ask questions and understood the discharge instructions. Discharge instructions specifically effects, indications for sooner follow up or return to the emergency department, and the expected course of current diagnosis. Patient condition: Stable Discharge Plan Plan Patient Disposition: HOME (Self Care) Prescriptions/Referrals Prescriptions/Med Rec: No Action lovastatin 20 mg tablet 1 tab PO ACHS Patient Comments: TAKE 1 TABLET BY MOUTH EVERY DAY WITH THE EVENING MEAL 90 wvrzdbrpawvu-Tm-parf-minerals 18-0.4 mg Tablet 1 tab PO QDAY omega 4-upv-gwt-fish oil [Fish Oil] 1,200 (144-216) mg Capsule 1 cap PO QDAY calcium carbonate-vitamin D3 600 mg-10 mcg (400 unit) Tablet 1 tab PO QDAY buspirone 7.5 mg tablet 7.5 mg PO BID Patient Comments: TAKE 1/2 TABLET BY MOUTH TWICE A DAY ascorbic acid (vitamin C) [Vitamin C] 250 mg Tablet 500 mg PO BID Qty: 60 0RF Referrals: José Byrd MD [Primary Care Provider, Family Practice] - In 1 week Problem List Clinical Impression: Abdominal pain, Elevated lipase, Elevated amylase, Adrenal mass Patient/Caregiver Discharge Instructions Additional Instructions: Dr. Carrillo will follow you up in his office this week or next week. Please give his office a call for appointment time. Return to ER as needed or if condition worsens. Print Language: Sudanese Stand Alone Forms: Nely Award Info., Patient Portal Info Letter
== END 2025-08-31 23:42 | disposition home or self-care (01) ==
PROVIDERS: Physician Assistant; Emergency Provider Emergency Medicine; PCP Family Medicine
DX: R10.9 Unspecified abdominal pain (principal); E27.9 Disorder of adrenal gland, unspecified; R74.8 Abnormal levels of other serum enzymes
CPT/HCPCS: 36415; 74177; 80053; 81001; 83690; 85025; 93005; 99283; A4649; Q9967

== ENCOUNTER 2025-09-15 08:47 | Outpatient (RCR) | payer MEDICARE, BC, SELFPAY ==
--- NOTE | 2025-09-27 23:15 | CTCFLWUP_ITS ---
Patient: LYDIA GRUBBS I. : 1940 Page 2 of 3 FOLLOW UP NOTE DATE OF SERVICE: 09/15/2025 NAME: LYDIA GRUBBS I. ACCOUNT: [id number] : 1940 AGE: 85 INTERVAL HISTORY: Lydia, an 85yo female with stage 2 colon cancer (2023), presented for oncology follow-up. Her history includes stage 3 CKD, hypercholesterolemia, and bronchiectasis. She underwent partial colectomy without chemotherapy and reports no new cancer-related symptoms. Recent labs showed improved kidney function (50, up from 46) and normal hemoglobin after discontinuing ferrous sulfate in September 2024. A stable 2cm pulmonary nodule was noted on CT. Management includes initiating circulating tumor DNA testing every 3 months, continuing CT surveillance, and follow-up in 6 months. 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 S/p right hemicolectomy on 02/24/2024. Garcia syndrome panel negative (03/22/2024) Small pulmonary nodules. History of bronchiectasis diagnosed in 2007. Currently being followed by Dr. Mcneal, [facility] of [place]. 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 S/p right hemicolectomy on 02/24/2024. Garcia syndrome panel negative (03/22/2024) [facility] inherited trait cancer test did not show any genetic abnormalities. DATE OF DIAGNOSIS: 02/23/2024 STAGE/TNM: Stage IIA (pT3, PN 0, centimeters 0) TREATMENT HISTORY: Care?Plan Start?Date Cycle Day Intent HISTORY OF PRESENT ILLNESS: Lydia Grubbs is a 85-year-old ENG speaking female with history of bronchiectasis was recently found to have microcytic anemia which prompted her to have colonoscopy. 10/27/2023: Hemoglobin 9.2, MCV 74, WBC 8.1, ANC 5.6, platelets 241,000. 02/23/2024: Colonoscopy 02/26/2024: CT scan of the chest with IV contrast? OTHER MEDICAL HISTORY/CONDITIONS: COPD HTN Hyperlipidemia Hx TIA Chronic kidney disease - Dr. Bobby Bronchietasis - Dr. 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 aspirin - 81 mg 1 tab Daily 2. azithromycin - 500 mg 1 tab As directed 3. busPIRone - 7.5 mg 0.5 tab Twice a Day 4. Calcium 500 - 500 mg 1 tab Twice a Day 5. Fish OiL - 1,200 (144-216) mg 1 Capsule Daily 6. lovastatin - 20 mg 1 tab Daily 7. Vitamin C - 500 mg 1 tab Twice a Day 8. Women's Daily Multivitamin - 18-0.4 mg 1 tab Daily Medications Last Reconciled by Rochelle White MD on 09/15/2025 ALLERGIES: No Known Drug Allergies REVIEW OF SYSTEMS: A complete 14-point review of systems was performed and is negative except as noted in interval history. PHYSICAL EXAMINATION: VITAL SIGNS: Temperature?97.6, B/P?143/86, Oxygen?Saturation?96% Weight?128?lbs PAIN: 0 - No pain ECOG Performance Status: 1 - Symptomatic; ambulatory; restricted in strenuous activity GENERAL APPEARANCE: Appears well, in no apparent distress, appropriately interactive. HEENT: Normocephalic, no temporal wasting, normal conjunctiva, lips without lesions, neck normal range of motion. CARDIOVASCULAR: Normal heart sounds PULMONARY: Normal respiratory effort, no respiratory distress or use of accessory muscles, speaking in full sentences, no tachypnea. EXTREMITIES: No cyanosis. SKIN: Normal skin appearance. NEUROLOGIC: Alert and oriented x4. PSHYCHIATRIC: Appropriate affect, mood normal, behavior normal, intact thought and speech. LABORATORY DATA: I have personally reviewed and interpreted each of the patient?s relevant lab tests, abnormal findings are below: Date 08/30/25 08/31/25 ??WHITE?BLOOD?COUNT?(Thou/mm3) 9.2 ? 9.0 ??RED?BLOOD?COUNT?(Miln/mm3) 4.84 ? 4.81 ??HEMOGLOBIN?(gm/dl) 14.9 ? 14.6 ??HEMATOCRIT?(%) 44.5 ? 43.4 ??PLATELET?COUNT?(Thou/mm3) 243 ? 240 ??NEUTROPHILS?%,?AUTO?(%) 71 ? 67 ??LYMPH?%,?AUTO?(%) 23 ? 24 ??NEUTROPHILS,?AUTO?(Thou/mm3) 6.5 ? 6.1 ??GLUCOSE,RANDOM?(mg/dL) 137?H 86 ? ??BLOOD?UREA?NITROGEN?(mg/dL) 14 14 ? ??CREATININE?(mg/dL) 1.10 1.00 ? ??SODIUM?(mmol/L) 142 139 ? ??POTASSIUM?(mmol/L) 4.7 4.1 ? ??CHLORIDE?(mmol/L) 102 101 ? ??CrCl?(CandG)?(ml/min) 34.70 38.17 ? ??AST/SGOT?(Unit/L) 27 34 ? ??ALT/SGPT?(Unit/L) 19 25 ? ??ALKALINE?PHOSPHATASE?(Unit/L) 66 74 ? ??BILIRUBIN,?TOTAL?(mg/dL) 0.5 0.6 ? ??PROTEIN?TOTAL?(gm/dl) 7.0 8.3?H ? ??ALBUMIN,?SERUM?(gm/dl) 4.5 5.4?H ? ??GLOBULIN?(gm/dl) 2.5 2.9 ? ??ALBUMIN/GLOBULIN?RATIO 1.8 1.9 ? ??CALCIUM,?SERUM?(mg/dL) 9.9 9.8 ? ??CALCIUM?SERUM?(CORRECTED)?(mg/dL) 9.9 9.8 ? ASSESSMENT/PLAN: 1. 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 S/p right hemicolectomy on 02/24/2024. Garcia syndrome panel negative (03/22/2024) [facility] inherited trait cancer test did not show any genetic abnormalities. Small pulmonary nodules. History of bronchiectasis diagnosed in 2007. Currently being followed by Dr. Mcneal, [facility] [place]. Taking antibiotics that are prescribed by Dr. Mcneal. Assessment: Patient underwent surgery in 2023 for stage 2 colon cancer, with 6 inches of colon removed. The surgeon, Dr. Grant, reported complete resection of the cancer. Post-operative management consisted of observation only, without adjuvant chemotherapy. A recent CT scan showed a stable 2-centimeter nodule, which is most likely scar tissue, possibly related to bronchiectasis or environmental factors associated with living in the [place]. The patient has been doing well since the surgery with no reported symptoms suggestive of recurrence. Plan: - Order circulating tumor DNA blood test for cancer surveillance - Initial test to be performed in clinic - Subsequent tests to be conducted at patient's home every 3 months - Continue surveillance with CT scans as previously scheduled - Follow-up appointment in 6 months - Continue current diet (primarily vegetarian with occasional fish) Chronic Kidney Disease, Stage 3 Assessment: Patient has a history of chronic kidney disease, stage 3. Recent laboratory results show improvement in kidney function with creatinine clearance of 50 mL/min, up from a previous value of 46 mL/min. The patient adheres to a low-salt, primarily vegetarian diet as recommended by her division merchandise manager, Dr. Bobby. Plan: - Continue current renal diet (low salt, primarily vegetarian with occasional fish) - Monitor renal function with comprehensive metabolic panel at next visit Anemia, Resolved Assessment: Patient has a history of anemia, previously treated with ferrous sulfate. Treatment was discontinued in September [address] Michele. Recent laboratory results show normal hemoglobin levels, indicating resolution of anemia. Plan: - Discontinue ferrous sulfate prescription at pharmacy - Monitor hemoglobin levels with complete blood count at next visit - Check vitamin and iron levels at next visit to ensure no deficiencies Elevated Blood Glucose Assessment: Recent random blood glucose was noted to be slightly elevated. No prior history of diabetes mellitus is mentioned. Plan: - Monitor blood glucose levels at future visits - Consider fasting blood glucose or HbA1c at next visit for further evaluation CBC CMP CEA iron panel ferritin B12 folate ORDERS: Order # Description [id number] Comprehensive Metabolic Panel - 12 + CBC with Auto Diff [id number] Hep A, B and C panel [id number] CEA + CA 19-9 + CA 697 [id number] MD Follow Up 3 Week [id number] RETURN TO CLINIC: I reviewed the diagnosis, prognosis, and recommended treatment/procedure options with the patient (and/or their legal premium service representative), including the potential benefits, risks, side effects and alternative therapies. We also discussed the option of no treatment and the possibility of clinical trial participation, if applicable. All questions were addressed, and they demonstrated understanding. They provided informed consent to proceed with the proposed plan of care. BILLING AND COMPLIANCE: I reviewed external records from providers outside my specialty as summarized above. I spent a total of 50 minutes on this patient?s care on the day of their visit excluding time spent related to any billed procedures. This time includes time spent with the patient as well as time spent documenting in the medical record, reviewing patients records and tests, obtaining history, placing orders, communicating with other healthcare professionals, counseling the patient, family or caregiver, and/or care coordination for the diagnoses above. Electronically Signed by: Francis Han MD T: 11:13 PM CC: PCP: José Byrd Referring: José Byrd This document was completed utilizing speech recognition software. Grammatical errors, random word insertions, pronoun errors, and incomplete sentences are an occasional consequence of this system due to software limitations, ambient noise, and hardware issues. Any formal questions or concerns about the content, text or information contained within the body of this dictation should be directly addressed to the provider for clarification.
== END 2025-09-16 23:59 | disposition home or self-care (01) ==
LOC: SCTC 08:47
PROVIDERS: PCP Family Medicine; Referring Provider Family Medicine; Visit Provider Internal Medicine Hematology & Oncology
DX: C18.2 Malignant neoplasm of ascending colon (principal); Z90.49 Acquired absence of other specified parts of digestive tract; R91.1 Solitary pulmonary nodule; Z87.09 Personal history of other diseases of the respiratory system; N18.30 Chronic kidney disease, stage 3 unspecified; Z86.2 Personal history of diseases of the blood and blood-forming organs and certain disorders involving the immune mechanism; R73.9 Hyperglycemia, unspecified
CPT/HCPCS: 99212; G0463

== ENCOUNTER → 2025-09-19 | Outpatient (CLI) | payer MEDICARE, BC, SELFPAY ==
[2025-09-19 08:36] LABS: Basophils # (Auto) 0.0 Thou/mm3 (0.0-0.2); Basophils % (Auto) 1 % (0-2.5); Eosinophils # (Auto) 0.2 Thou/mm3 (0.0-0.5); Eosinophils % (Auto) 3 % (0-10); Hematocrit 43.7 % (36.0-46.0); Hemoglobin 14.7 g/dL (12.0-16.0); Immature Granulocytes Auto 0.02 Thou/mm3 (0.00-0.00); Lymphocytes # (Auto) 2.1 Thou/mm3 (1.0-4.8); Lymphocytes % (Auto) 36 % (10-50); Mean Corpuscular HGB Conc 33.6 g/dl (31.0-37.0); Mean Corpuscular Hemoglobin 30.6 pg (25.0-35.0); Mean Corpuscular Volume 91 fL (80-100); Monocytes # (Auto) 0.5 Thou/mm3 (0.0-0.8); Monocytes % (Auto) 8 % (0-12); Neutrophils # (Auto) 3.2 Thou/mm3 (1.8-7.7); Neutrophils % (Auto) 53 % (37-80); Nucleated Red Blood Cell # 0.00 Thou/mm3 (0.00-0.00); Nucleated Red Blood Cell % 0 /100 WBC (0); Platelet Count 240 Thou/mm3 (140-440); RDW Standard Deviation 42.1 fL (36.4-46.3); Red Blood Count 4.80 Miln/mm3 (4.00-5.20); White Blood Count 5.9 Thou/mm3 (3.6-11.0)
[2025-09-19 08:47] LABS: Alanine Aminotransferase 22 U/L (10-49); Albumin, Serum 4.6 gm/dL (3.4-4.8); Albumin/Globulin Ratio 1.8 (1.2-2.2); Alkaline Phosphatase 66 U/L (46-116); Anion Gap 9 (7-16); Aspartate Amino Transferase 30 U/L (0-34); BUN/Creatinine Ratio 10 Ratio (12-20); Bilirubin,Total 0.6 mg/dL (0.3-1.2); Blood Urea Nitrogen 12 mg/dL (9-23); Calcium 9.7 mg/dL (8.3-10.6); Calcium (Corrected) 9.7 mg/dL (8.5-10.1); Carbon Dioxide 29.1 mMol/L (20.0-31.0); Chloride 105 mMol/L (98-107); Creatinine (Component) 1.2 mg/dL (0.6-1.3); Globulin 2.6 gm/dL (2.3-3.5); Glucose 99 mg/dL (74-106); Osmolality,Calculated 284 (275-295); Potassium 4.6 mMol/L (3.4-5.1); Sodium 143 mMol/L (136-145); Total Protein 7.2 gm/dL (5.7-8.2); eGFR 44 See Note
[2025-09-19 10:00] LABS: CA 125 18.0 U/mL (<30.2); Carcinoembryonic Antigen 1.6 ng/mL (0.0-5.0); Hepatitis A Antibody IgM Non Reactive (Non React); Hepatitis B Core Antibody IgM Non Reactive (Non React); Hepatitis B Surface Antigen Non Reactive (Non React); Hepatitis C Antibody Non Reactive (Non React)
[2025-09-23 06:35] LABS: CA 19-9 Antigen* 108 U/mL (<34)
== END | disposition home or self-care (01) ==
LOC: COPL 07:27
PROVIDERS: PCP Family Medicine; Referring Provider Internal Medicine Hematology & Oncology; Visit Provider Internal Medicine Hematology & Oncology
DX: C18.9 Malignant neoplasm of colon, unspecified (principal)
CPT/HCPCS: 36415; 80053; 80074; 82378; 85025; 86301; 86304

== ENCOUNTER → 2025-09-26 | Outpatient (CLI) | payer MEDICARE, BC, SELFPAY ==
[2025-09-26 07:38] LABS: Misc Send Out* See Sep Rpt
[2025-09-26 07:56] LABS: Collection Type, Urine Clean Catch; Squamous Epithelial Cell,Urine 0 /hpf (0-5)
[2025-09-26 08:52] LABS: Bilirubin,Urine Negative (Negative); Blood,Urine Trace (Negative); Clarity,Urine Clear (Clear/Hazy); Color,Urine Lt-Yellow (Lt Yel-Yel); Culture Indicated,Urine Not Indicated; Glucose, Urine Negative (Negative); Ketones,Urine Negative (Negative); Leukocyte Esterase,Urine Negative (Negative); Nitrite,Urine Negative (Negative); PH,Urine 7.0 (5.0-7.0); Protein,Urine Negative (Neg - Trace); RBC,Urine 2 /hpf (0-3); Specific Gravity,Urine 1.008 (1.001-1.035); Urobilinogen,Urine Negative mg/dL (0.0-1.0); WBC,Urine < 1 /hpf (0-5)
[2025-09-26 08:53] LABS: Glucose Estimated Average 108 mg/dL (80-131); Hemoglobin A1C 5.4 % Hgb (4.8-6.0)
[2025-09-26 09:02] LABS: Alanine Aminotransferase 24 U/L (10-49); Albumin, Serum 4.9 gm/dL (3.4-4.8); Albumin/Globulin Ratio 2.1 (1.2-2.2); Alkaline Phosphatase 66 U/L (46-116); Anion Gap 9 (7-16); Aspartate Amino Transferase 32 U/L (0-34); BUN/Creatinine Ratio 12 Ratio (12-20); Bilirubin,Total 0.6 mg/dL (0.3-1.2); Blood Urea Nitrogen 12 mg/dL (9-23); Calcium 9.7 mg/dL (8.3-10.6); Calcium (Corrected) 9.7 mg/dL (8.5-10.1); Carbon Dioxide 29.3 mMol/L (20.0-31.0); Cardiac Risk Estimate 2.7 RATIO (3.7-5.6); Chloride 103 mMol/L (98-107); Cholesterol 181 mg/dL (132-200); Creatinine (Component) 1.0 mg/dL (0.6-1.3); Globulin 2.3 gm/dL (2.3-3.5); Glucose 103 mg/dL (74-106); HDL Cholesterol 68 mg/dL (40-60); LDL Cholesterol,Calculated 95 mg/dL (0-130); Osmolality,Calculated 280 (275-295); Potassium 4.0 mMol/L (3.4-5.1); Sodium 141 mMol/L (136-145); Total Protein 7.2 gm/dL (5.7-8.2); Triglycerides 92 mg/dL (30-150); eGFR 55 See Note
== END | disposition home or self-care (01) ==
LOC: COPL 06:56
PROVIDERS: PCP Physician Assistant; Referring Provider Internal Medicine Hematology & Oncology; Visit Provider Internal Medicine Hematology & Oncology
DX: E78.5 Hyperlipidemia, unspecified (principal); R31.9 Hematuria, unspecified; R73.01 Impaired fasting glucose; C18.9 Malignant neoplasm of colon, unspecified
CPT/HCPCS: 36415; 80053; 80061; 81001; 83036

== ENCOUNTER 2025-10-06 08:13 | Outpatient (CLI) | payer MEDICARE, BC, SELFPAY ==
[2025-10-04 16:13] VITALS: BMI 22.3
[2025-10-05 11:25] LABS: Basophils # (Auto) 0.0 Thou/mm3 (0.0-0.2); Basophils % (Auto) 0 % (0-2.5); Eosinophils # (Auto) 0.1 Thou/mm3 (0.0-0.5); Eosinophils % (Auto) 1 % (0-10); Hematocrit 44.1 % (36.0-46.0); Hemoglobin 14.8 g/dL (12.0-16.0); Immature Granulocytes Auto 0.03 Thou/mm3 (0.00-0.00); Lymphocytes # (Auto) 1.6 Thou/mm3 (1.0-4.8); Lymphocytes % (Auto) 17 % (10-50); Mean Corpuscular HGB Conc 33.6 g/dl (31.0-37.0); Mean Corpuscular Hemoglobin 30.3 pg (25.0-35.0); Mean Corpuscular Volume 90 fL (80-100); Monocytes # (Auto) 0.6 Thou/mm3 (0.0-0.8); Monocytes % (Auto) 7 % (0-12); Neutrophils # (Auto) 6.9 Thou/mm3 (1.8-7.7); Neutrophils % (Auto) 75 % (37-80); Nucleated Red Blood Cell # 0.00 Thou/mm3 (0.00-0.00); Nucleated Red Blood Cell % 0 /100 WBC (0); Platelet Count 256 Thou/mm3 (140-440); RDW Standard Deviation 41.7 fL (36.4-46.3); Red Blood Count 4.89 Miln/mm3 (4.00-5.20); White Blood Count 9.2 Thou/mm3 (3.6-11.0)
[2025-10-05 11:38] LABS: Blood Urea Nitrogen 12 mg/dL (9-23); Creatinine (Component) 1.0 mg/dL (0.6-1.3); Estimated Creatinine Clearance 34.9 mL/min (>60); eGFR 55 See Note
[2025-10-05 11:39] LABS: INR 1.0 (0.9-1.3); Partial Thromboplastin Time 28.8 Seconds (22.0-36.0); Prothrombin Time 11.0 Seconds (9.0-12.2)
[2025-10-06] VITALS (13 sets, daily range): BP systolic 114–199; BP diastolic 76–107; PULSE 65–88; RESP 14–24; TEMP 36.5–37; O2SAT 92–97; BMI 21.8
--- NOTE | 2025-10-06 09:30 | XR_ITS ---
Examination: CT-guided percutaneous biopsy right paracaval mass CT abdomen without intravenous contrast Date and time of procedure: October 06, 2025, 1119 hours INDICATIONS: CT abdomen pelvis August 31, 2025 4.1 cm right paracaval mass Informed consent provided. A timeout was completed verifying correct patient, procedure, site and positioning. Technique: Axial 3 mm sections were obtained for localization of the soft tissue right paracaval mass Appropriate area is marked. The patient's site was prepped and draped in sterile fashion Maximal sterile barrier technique utilized, including hand hygiene Local anesthesia was obtained with 1% lidocaine. Low dose protocols were performed. One or more of the following dose reduction techniques were used; automated exposure control, adjustment of the mA and/or KV according to patient size, use of iterative reconstruction technique. Utilizing CT fluoroscopic guidance 3 core biopsies obtained of the paracaval mass Patient appears in stable condition during this procedure. At completion of the procedure, the patient is in satisfactory condition. Estimated blood loss 0 cc Complete pathology report to follow. Impression: Successful CT-guided biopsy soft tissue right paracaval mass
[2025-10-06] MEDS: fentaNYL CIT INJ 50 mCg/ML AMP 2ML 75 MCG IVP (11:31)
--- NOTE | 2025-10-06 13:07 | PC.NURSE ---
1155 patient is awake, alert, breathing unlabored, s/p ct guided right paracaval mass biopsy, dressing to right lower back dry with no bleeding, patient in medical laboratory scientist bay 4 for 1 hr recovery. March resume aspirin on friday10/08/25 1303 patient is awake, alert, breathing unlabored, dressing dry with no bleeding, discharge instructions given to patient and Ray, patient discharged home in wheelchair with all belongings including left and right hearing aids.
== END 2025-10-06 13:03 | disposition home or self-care (01) ==
PROVIDERS: Radiology Diagnostic Radiology; PCP Physician Assistant; Referring Provider Internal Medicine Hematology & Oncology; Visit Provider Internal Medicine Hematology & Oncology
DX: R19.09 Other intra-abdominal and pelvic swelling, mass and lump (principal)
CPT/HCPCS: 22999; 36415; 77012; 82565; 84520; 85025; 85610; 85730; A4649; J3010

== ENCOUNTER → 2025-10-25 | Outpatient (CLI) | payer MEDICARE, BC, SELFPAY ==
[2025-10-25 11:47] LABS: Basophils # (Auto) 0.0 Thou/mm3 (0.0-0.2); Basophils % (Auto) 1 % (0-2.5); Eosinophils # (Auto) 0.0 Thou/mm3 (0.0-0.5); Eosinophils % (Auto) 1 % (0-10); Hematocrit 43.5 % (36.0-46.0); Hemoglobin 14.9 g/dL (12.0-16.0); Immature Granulocytes Auto 0.01 Thou/mm3 (0.00-0.00); Lymphocytes # (Auto) 1.2 Thou/mm3 (1.0-4.8); Lymphocytes % (Auto) 19 % (10-50); Mean Corpuscular HGB Conc 34.3 g/dl (31.0-37.0); Mean Corpuscular Hemoglobin 31.0 pg (25.0-35.0); Mean Corpuscular Volume 90 fL (80-100); Monocytes # (Auto) 0.5 Thou/mm3 (0.0-0.8); Monocytes % (Auto) 8 % (0-12); Neutrophils # (Auto) 4.6 Thou/mm3 (1.8-7.7); Neutrophils % (Auto) 72 % (37-80); Nucleated Red Blood Cell # 0.00 Thou/mm3 (0.00-0.00); Nucleated Red Blood Cell % 0 /100 WBC (0); Platelet Count 235 Thou/mm3 (140-440); RDW Standard Deviation 40.8 fL (36.4-46.3); Red Blood Count 4.81 Miln/mm3 (4.00-5.20); White Blood Count 6.3 Thou/mm3 (3.6-11.0)
[2025-10-25 12:08] LABS: Ferritin 21 ng/mL (7.3-270.7); Iron 93 mcg/dL (50-170); Percent Iron Saturation 24 % (20-55); Total Iron Binding Capacity 380 mcg/dL (250-425); Unsaturated Iron Binding 287 (225-295)
[2025-10-25 12:17] LABS: Alanine Aminotransferase 25 U/L (10-49); Albumin, Serum 4.5 gm/dL (3.4-4.8); Albumin/Globulin Ratio 1.6 (1.2-2.2); Alkaline Phosphatase 62 U/L (46-116); Anion Gap 6 (7-16); Aspartate Amino Transferase 30 U/L (0-34); BUN/Creatinine Ratio 15 Ratio (12-20); Bilirubin,Total 0.6 mg/dL (0.3-1.2); Blood Urea Nitrogen 17 mg/dL (9-23); Calcium 9.6 mg/dL (8.3-10.6); Calcium (Corrected) 9.6 mg/dL (8.5-10.1); Carbon Dioxide 31.7 mMol/L (20.0-31.0); Chloride 102 mMol/L (98-107); Creatinine (Component) 1.1 mg/dL (0.6-1.3); Globulin 2.9 gm/dL (2.3-3.5); Glucose 101 mg/dL (74-106); LDH (Lactate Dehydrogenase) 209 U/L (120-246); Osmolality,Calculated 280 (275-295); Potassium 4.4 mMol/L (3.4-5.1); Sodium 140 mMol/L (136-145); Total Protein 7.4 gm/dL (5.7-8.2); eGFR 49 See Note
[2025-10-25 12:40] LABS: CA 125 19.0 U/mL (<30.2); Carcinoembryonic Antigen 1.0 ng/mL (0.0-5.0); Folate > 24.00 ng/mL (>5.38); Hepatitis A Antibody IgM Non Reactive (Non React); Hepatitis B Core Antibody IgM Non Reactive (Non React); Hepatitis B Surface Antigen Non Reactive (Non React); Hepatitis C Antibody Non Reactive (Non React)
[2025-10-31 06:46] LABS: CA 19-9 Antigen* 105 U/mL (<34); Haptoglobin* 98 mg/dL (43-212)
== END | disposition home or self-care (01) ==
LOC: SCTO 10:18
PROVIDERS: PCP Family Medicine; Referring Provider Internal Medicine Hematology & Oncology; Visit Provider Internal Medicine Hematology & Oncology
DX: C18.9 Malignant neoplasm of colon, unspecified (principal)
CPT/HCPCS: 36415; 80053; 80074; 82378; 82728; 82746; 83010; 83540; 83550; 83615; 85025; 86301; 86304

== ENCOUNTER 2025-10-26 11:33 | Outpatient (RCR) | payer MEDICARE, BC, SELFPAY ==
--- NOTE | 2025-10-26 12:52 | CTCFLWUP_ITS ---
Patient: LYDIA GRUBBS I. : 1940 Page 2 of 2 FOLLOW UP NOTE DATE OF SERVICE: 10/26/2025 NAME: LDYIA GRUBBS I. ACCOUNT: [id number] : 1940 AGE: 85 INTERVAL HISTORY: Summary --Lydia, an 85yo female with stage 2 colon cancer (2023), presented for oncology follow-up. Her history includes stage 3 CKD, hypercholesterolemia, and bronchiectasis. She underwent partial colectomy without chemotherapy and reports no new cancer-related symptoms. 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 Patient want to wait for a repeat biopsy in [address] scan ordered and will see Ms. Grubbs in first week of December. Will also go over the results of Mirtha at that time ONCOLOGY HISTORY:?[facility] Hx? 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 S/p right hemicolectomy on 02/24/2024. Garcia syndrome panel negative (03/22/2024) Small pulmonary nodules. History of bronchiectasis diagnosed in 2007. Currently being followed by Dr. Mcneal, maintenance leader of [place]. 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 S/p right hemicolectomy on 02/24/2024. Garcia syndrome panel negative (03/22/2024) [facility] inherited trait cancer test did not show any genetic abnormalities. ?[facility] Dx? DATE OF DIAGNOSIS: 02/23/2024 STAGE/TNM: Stage IIA (pT3, PN 0, centimeters 0) TREATMENT HISTORY: Care?Plan Start?Date Cycle Day Intent HISTORY OF PRESENT ILLNESS: Lydia Grubbs is a 85-year-old ENG speaking female with history of bronchiectasis was recently found to have microcytic anemia which prompted her to have colonoscopy. 10/27/2023: Hemoglobin 9.2, MCV 74, WBC 8.1, ANC 5.6, platelets 241,000. 02/23/2024: Colonoscopy 02/26/2024: CT scan of the chest with IV contrast? OTHER MEDICAL HISTORY/CONDITIONS: COPD HTN Hyperlipidemia Hx TIA Chronic kidney disease - Dr. Bobby Bronchietasis - Dr. Mcneal, maintenance leader, [place] [facility] T and A - 1940' Tubal ligation - 1969 Appendectomy; right oophorectomy - 2014 Left inguinal hernia repair - 2021 Alvin cataracts - 2022 Right colectomy - 02/24/2024 FAMILY HISTORY: Father:?Prostate?-?dx?mid?80's Mother:?Breast?-?dx?mid?80's SOCIAL HISTORY: Occupational?History:?Retired?-?[employer] Education?Level:?Completed High School Marital?Status:? 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 aspirin - 81 mg 1 tab Daily 2. azithromycin - 500 mg 1 tab As directed 3. busPIRone - 7.5 mg 0.5 tab Twice a Day 4. Calcium 500 - 500 mg 1 tab Twice a Day 5. Fish OiL - 1,200 (144-216) mg 1 Capsule Daily 6. lovastatin - 20 mg 1 tab Daily 7. Vitamin C - 500 mg 1 tab Twice a Day 8. Women's Daily Multivitamin - 18-0.4 mg 1 tab Daily?Palabra Meds? Medications Last Reconciled by Rochelle White MD on 10/26/2025 ALLERGIES: No Known Drug Allergies REVIEW OF SYSTEMS: A complete 14-point review of systems was performed and is negative except as noted in interval history. PHYSICAL EXAMINATION:?[facility] PE? VITAL SIGNS: Temperature?96.7, B/P?147/85, Oxygen?Saturation?94% Weight?130?lbs PAIN: 0 - No pain GENERAL APPEARANCE: Appears well, in no apparent distress, appropriately interactive. HEENT: Normocephalic, no temporal wasting, normal conjunctiva, lips without lesions, neck normal range of motion. EXTREMITIES: No cyanosis. SKIN: Normal skin appearance. NEUROLOGIC: Alert and oriented x4. PSHYCHIATRIC: Appropriate affect, mood normal, behavior normal, intact thought and speech. LABORATORY DATA: I have personally reviewed and interpreted each of the patient?s relevant lab tests, abnormal findings are below: Date 10/25/25 ??WHITE?BLOOD?COUNT?(Thou/mm3) 6.3 ??RED?BLOOD?COUNT?(Miln/mm3) 4.81 ??HEMOGLOBIN?(gm/dl) 14.9 ??HEMATOCRIT?(%) 43.5 ??PLATELET?COUNT?(Thou/mm3) 235 ??NEUTROPHILS?%,?AUTO?(%) 72 ??LYMPH?%,?AUTO?(%) 19 ??NEUTROPHILS,?AUTO?(Thou/mm3) 4.6 ??GLUCOSE,RANDOM?(mg/dL) 101 ??BLOOD?UREA?NITROGEN?(mg/dL) 17 ??CREATININE?(mg/dL) 1.10 ??SODIUM?(mmol/L) 140 ??POTASSIUM?(mmol/L) 4.4 ??CHLORIDE?(mmol/L) 102 ??CrCl?(CandG)?(ml/min) 33.65 ??AST/SGOT?(Unit/L) 30 ??ALT/SGPT?(Unit/L) 25 ??ALKALINE?PHOSPHATASE?(Unit/L) 62 ??BILIRUBIN,?TOTAL?(mg/dL) 0.6 ??PROTEIN?TOTAL?(gm/dl) 7.4 ??ALBUMIN,?SERUM?(gm/dl) 4.5 ??GLOBULIN?(gm/dl) 2.9 ??ALBUMIN/GLOBULIN?RATIO 1.6 ??CALCIUM,?SERUM?(mg/dL) 9.6 ??CALCIUM?SERUM?(CORRECTED)?(mg/dL) 9.6 ??CEA?(O*)?(ng/ml) 1.0 ??TOTAL?IRON?BINDING?CAP?(S*)?(mcg/dL) 380 ??UNBOUND?IBC?(mcg/dL) 287 ASSESSMENT/PLAN:?Deborah Han Assessment/Plan? 1. 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 S/p right hemicolectomy on 02/24/2024. Garcia syndrome panel negative (03/22/2024) [facility] inherited trait cancer test did not show any genetic abnormalities. Small pulmonary nodules. History of bronchiectasis diagnosed in 2007. Currently being followed by Dr. Mcneal, maintenance leader of [place]. Taking antibiotics that are prescribed by Dr. Mcneal. Assessment: Patient underwent surgery in 2023 for stage 2 colon cancer, with 6 inches of colon removed. The surgeon, Dr. Grant, reported complete resection of the cancer. Post-operative management consisted of observation only, without adjuvant chemotherapy. A recent CT scan showed a stable 2-centimeter nodule, which is most likely scar tissue, possibly related to bronchiectasis or environmental factors [place] The patient has been doing well since the surgery with no reported symptoms suggestive of recurrence. Circulating DNA results are pending Pathology is concerning for spindle cell tumor or leiomyosarcoma cannot be ruled out I would like to wait for another CT scan and repeating the biopsy before committing patient to a diagnosis of sarcoma Will repeat CT scan in November 2024 to see if there is any progression in lesions and will repeat biopsy if needed Also will follow on the [facility] results Based on the biopsy patient do not have recurrence of colon cancer Chronic Kidney Disease, Stage 3 Assessment: Patient has a history of chronic kidney disease, stage 3. Recent laboratory results show improvement in kidney function with creatinine clearance of 50 mL/min, up from a previous value of 46 mL/min. The patient adheres to a low-salt, primarily vegetarian diet as recommended by her inventory accountant, Dr. Bobby. Plan: - Continue current renal diet (low salt, primarily vegetarian with occasional fish) - Monitor renal function with comprehensive metabolic panel at next visit Anemia, Resolved Assessment: Patient has a history of anemia, previously treated with ferrous sulfate. Treatment was discontinued in September [address] Michele. Recent laboratory results show normal hemoglobin levels, indicating resolution of anemia. Plan: - Discontinue ferrous sulfate prescription at pharmacy - Monitor hemoglobin levels with complete blood count at next visit - Check vitamin and iron levels at next visit to ensure no deficiencies Elevated Blood Glucose Assessment: Recent random blood glucose was noted to be slightly elevated. No prior history of diabetes mellitus is mentioned. Plan: - Monitor blood glucose levels at future visits - Consider fasting blood glucose or HbA1c at next visit for further evaluation CBC CMP CEA iron panel ferritin B12 folate ORDERS: Order # Description [id number] CT Scan + Chest + Abdomen and Pelvis + With W/O Contrast [id number] CEA [id number] Comprehensive Metabolic Panel - 12 + CBC with Auto Diff + CEA [id number] Iron Panel + Ferritin + Folic Acid; Serum + Lactate Dehydrogenase (LDH) + Assay Of Haptoglobin Quant RETURN TO CLINIC: I reviewed the diagnosis, prognosis, and recommended treatment/procedure options with the patient (and/or their legal sales representative adding machines), including the potential benefits, risks, side effects and alternative therapies. We also discussed the option of no treatment and the possibility of clinical trial participation, if applicable. All questions were addressed, and they demonstrated understanding. They provided informed consent to proceed with the proposed plan of care. BILLING AND COMPLIANCE: I reviewed external records from providers outside my specialty as summarized above. I spent a total of 50 minutes on this patient?s care on the day of their visit excluding time spent related to any billed procedures. This time includes time spent with the patient as well as time spent documenting in the medical record, reviewing patients records and tests, obtaining history, placing orders, communicating with other healthcare professionals, counseling the patient, family or caregiver, and/or care coordination for the diagnoses above. Electronically Signed by: Francis Han MD T: 12:50 PM CC: PCP: José Byrd Referring: José Byrd This document was completed utilizing speech recognition software. Grammatical errors, random word insertions, pronoun errors, and incomplete sentences are an occasional consequence of this system due to software limitations, ambient noise, and hardware issues. Any formal questions or concerns about the content, text or information contained within the body of this dictation should be directly addressed to the provider for clarification.
== END 2025-11-16 23:59 | disposition home or self-care (01) ==
LOC: SCTC 11:33
PROVIDERS: PCP Family Medicine; Referring Provider Family Medicine; Visit Provider Internal Medicine Hematology & Oncology
DX: Z08 Encounter for follow-up examination after completed treatment for malignant neoplasm (principal); Z85.038 Personal history of other malignant neoplasm of large intestine; R91.8 Other nonspecific abnormal finding of lung field; Z90.49 Acquired absence of other specified parts of digestive tract; N18.30 Chronic kidney disease, stage 3 unspecified; R73.9 Hyperglycemia, unspecified
CPT/HCPCS: 99212; G0463

== ENCOUNTER → 2025-10-27 | Outpatient (CLI) | payer MEDICARE, BC, SELFPAY ==
[2025-10-27 14:23] LABS: Albumin, Serum 4.9 gm/dL (3.4-4.8); Anion Gap 5 (7-16); BUN/Creatinine Ratio 18 Ratio (12-20); Blood Urea Nitrogen 16 mg/dL (9-23); Calcium 9.7 mg/dL (8.3-10.6); Calcium (Corrected) 9.7 mg/dL (8.5-10.1); Carbon Dioxide 31.7 mMol/L (20.0-31.0); Chloride 104 mMol/L (98-107); Creatinine (Component) 0.9 mg/dL (0.6-1.3); Glucose 66 mg/dL (74-106); Osmolality,Calculated 280 (275-295); Phosphorous 3.4 mg/dL (2.4-5.1); Potassium 4.8 mMol/L (3.4-5.1); Sodium 141 mMol/L (136-145); eGFR > 60 See Note
== END | disposition home or self-care (01) ==
LOC: COPL 13:10
PROVIDERS: PCP Family Medicine; Referring Provider Internal Medicine; Visit Provider Internal Medicine
DX: N18.31 Chronic kidney disease, stage 3a (principal); Z85.038 Personal history of other malignant neoplasm of large intestine; N28.1 Cyst of kidney, acquired
CPT/HCPCS: 36415; 80069